=== PATIENT | female | born 1935 | race Caucasian/White ===

== ENCOUNTER 2022-02-03 14:00 | Emergency (ER) | payer OTHER ==
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
[2022-02-03 14:40] LABS: Absolute Lymphocytes (CBC) 1.1 K/uL (0.7-4.9); Hematocrit 36.4 % (36.0-45.0); Lymphocytes % 12.3 % (15.3-44.8); RBC Red Blood Cell Count 4.09 M/uL (3.86-4.86)
[2022-02-03 15:03] LABS: Potassium 4.2 mmol/L (3.5-5.1)
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
[2022-02-03] MEDS ORDERED: MORPHINE 4 MG/ML SYR ONE ×2 (15:37→18:16)
[2022-02-03] MEDS ORDERED: ONDANSETRON 4 MG/2 ML VIAL ONE (15:37)
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
[2022-02-03 19:23] VITALS: TEMP 97.5
[2022-02-03 19:26] VITALS: BP 128/94; O2SAT 97
--- NOTE | 2022-02-04 07:24 | EKG ---
Test Date: 2022-02-03 Test Time: 13:50:21 Cigar Tobacco Rehandler: MIKE MEASUREMENT RESULTS: Intervals: Rate: 86 [place]: QRSD: 88 QT: 412 QTc: 493 [place]: P: [place]: QRS: 98 T: 60 INTERPRETIVE STATEMENTS: Atrial fibrillation with premature ventricular or aberrantly conducted complexes Rightward axis Septal infarct, age undetermined Abnormal ECG No previous ECG available for comparison Electronically Signed On 02-04-22 07:22:07 CDT by Evan Gonzales
== END 2022-02-03 18:21 | disposition short-term general hospital (02) ==
LOC: ER 14:00
DX: S32.492A Other specified fracture of left acetabulum, initial encounter for closed fracture (principal); S52.501A Unspecified fracture of the lower end of right radius, initial encounter for closed fracture; S52.601A Unspecified fracture of lower end of right ulna, initial encounter for closed fracture; S82.142A Displaced bicondylar fracture of left tibia, initial encounter for closed fracture; V49.50XA Passenger injured in collision with unspecified motor vehicles in traffic accident, initial encounter; Z20.822 Contact with and (suspected) exposure to COVID-19; G30.9 Alzheimer's disease, unspecified; F02.80 Dementia in other diseases classified elsewhere, unspecified severity, without behavioral disturbance, psychotic disturbance, mood disturbance, and anxiety; I10 Essential (primary) hypertension; Z88.0 Allergy status to penicillin; Z91.048 Other nonmedicinal substance allergy status
CPT/HCPCS: 93005; 85025; 80048; 36415; 86900; 86850; 86901; 70450; 71250; 72125; 73700 ×2; 73502; 73110; 73562; 96375; 96374; 99285; U0003; J2405